=== PATIENT | female | born 1990 | race Caucasian/White ===

== ENCOUNTER 2025-04-13 14:51 | Emergency (ER) | payer OTHER ==
[~2025-04-13] VITALS: Ht 167.6 cm; Wt 64.0 kg
[2025-04-13 15:11] VITALS: BP 130/103; PULSE 64; RESP 18; O2SAT 98
[2025-04-13] MEDS ORDERED: ONDA-243 PO (16:26)
--- NOTE | 2025-04-13 16:29 | Physician Documentation ---
History of Present Illness ~ Chief Complaint: Ear Pain Stated Complaint: MED REQUEST Time Seen by MD: 15:48 HPI 34-year-old female presents to the emergency department for evaluation of right ear infection. Reports she was placed on amoxicillin five days ago and also prescribed nystatin because she has oral thrush. Has secondary complaints of some mild cervical lymphadenopathy without dysphagia. No other associated URI symptoms. Reports generalized nausea likely secondary to the medication. No reported injury or other illness, no reported fever and immunizations up-to-date. Dizziness or tinnitus. Medication Reconciliation Allergies: Coded Allergies: No Known Allergies (Unverified , 04/13/25) Scheduled PRN ONDANSETRON ODT 4mg tablet (Ondansetron Odt), 1 TAB PO Q6H PRN PRN for nausea/vomiting Review of Systems All Other Systems at this time: Reviewed and Negative Constitutional: Reports: no symptoms reported Eyes: Reports: no symptoms reported ENT: Reports: see HPI; Denies: ear discharge, hearing loss, ear ringing, throat swelling, voice change Cardiovascular: Reports: no symptoms reported Gastrointestinal: Reports: no symptoms reported Neurological: Reports: no symptoms reported Musculoskeletal: Reports: no symptoms reported Integumentary: Reports: no symptoms reported Allergic/Immunologic: Reports: no symptoms reported Hematologic/Lymphatic: Reports: no symptoms reported Endocrine: Reports: no symptoms reported Physical Exam Vital Signs: Temperature: 97.3, Heart Rate: 64, Respiratory Rate: 18, BP: 130/103, Pulse Oximetry: 98, Weight: 64.000 General Appearance: alert, WD/WN General Appearance Anxiousness Eye Lid: normal inspection Conjunctiva: normal inspection Cornea: normal inspection Pupils/EOM/Fundus: PERRLA Face: normal inspection Head: normal inspection Neck: non-tender, lymphadenopathy (R), lymphadenopathy (L) Respiratory: lungs clear Gastrointestinal: normal palpation Skin: normal color Progress Results/Orders Results/Orders Vital Signs 04/13/25 04/13/25 15:11 16:52 Temp 97.3 97.3 Pulse 64 Resp 18 B/P (MAP) 130/103 Pulse Ox 98 Medical Decision Making Additional Comment Examination history consistent with a resolving right otitis media without clinical suspicion for mastoiditis or otitis externa. No clinical suspicion for pharyngitis, peritonsillar abscess or angioedema. No clinical suspicion for Kenny's angina. Patient's thrashes also resolving. Encouraged the patient to continue with medications for 2-3 days have follow up with the primary care physician in hopes of discontinuing the medication. For the breakthrough nausea prescribed her Zofran. She is discharged in the emergency department without clinical suspicion for serious bacterial illness such as pneumonia or meningitis. Departure Disposition: HOME / SELF CARE / HOMELESS Impression: Primary Impression: Otitis media Qualified Codes: H65.21 - Chronic serous otitis media, right ear Additional Impressions: Nausea Thrush Condition: Stable Discharge Instructions: Earache, Adult, Otitis Media, Adult Additional Instructions: Your examination today is consistent with resolving right otitis media ear infection. I have prescribed you Zofran for nausea which is likely secondary to the medications. Please make follow up with the primary care physician in 2-3 days and continue with medications as directed until the him. Return to the emergency department as needed. Thank you for visiting emergency department [facility]. Referrals: NO PRIMARY CARE PROVIDER (PCP) Prescriptions ONDANSETRON ODT 4mg tablet (ONDANSETRON ODT) 4 Mg Tab.rapdis 1 TAB PO Q6H PRN PRN for nausea/vomiting for 4 Days, #16 TAB 0 Refills Prov: ARTEM ANGULO PAC 04/13/25 Education Educated: Patient Educated regarding: diagnosis, treatment Signature Scribe Signature: . Attestation: . ARTEM ANGULO PAC Apr 13, 2025 16:28
[2025-04-13 16:52] VITALS: TEMP 97.3
== END 2025-04-13 16:54 | disposition home or self-care (01) ==
LOC: ER 14:52
DX: H66.91 Otitis media, unspecified, right ear (principal); B37.0 Candidal stomatitis; R11.0 Nausea
CPT/HCPCS: 99283

== ENCOUNTER 2025-04-13 21:33 | Emergency (ER) | payer OTHER ==
[~2025-04-13] VITALS: Ht 167.6 cm; Wt 71.4 kg
[~2025-04-13 21:33] MED LIST: ONDA-243 PO
--- NOTE | 2025-04-13 23:04 | Physician Documentation ---
History of Present Illness ~ Chief Complaint: Allergic Reaction Stated Complaint: RECHECK Time Seen by MD: 22:33 HPI 34-year-old immunocompetent female seen earlier in the emergency department for resolving right otitis media taking amoxicillin. Additionally has some mild URI symptoms. Patient additionally using nystatin for a mild oral thrush. From prior history seems the symptoms began after she suspected she may have contacted Chagas disease. So she did not oral cleansing and whole-body cleansing which I believe triggered a oral thrush. Upon her prior evaluation she was noted to have shotty cervical nodes likely secondary to the otitis media and the rash. Additionally developed right otalgia for which her primary care physician began amoxicillin. She has had no rash or no shortness a breath but she has had side effects has been unpleasant. She returns to the emergency department because upon returning home her noted that she had a single high and there was approximately 6 cm x 6 cm to her left buttocks. She does recall a bite and/or prior history of the same. Mildly discomfort without pruritus. Patient took antihistamine prior to arrival. There was no respiratory involvement. Patient believes her son may have infected her the respiratory virus for now she is having some nasal congestion Medication Reconciliation Allergies: Coded Allergies: No Known Allergies (Unverified , 04/13/25) Scheduled PRN ONDANSETRON ODT 4mg tablet (Ondansetron Odt), 1 TAB PO Q6H PRN PRN for nausea/vomiting Review of Systems All Other Systems at this time: Reviewed and Negative ENT: Reports: ear pain, nose congestion Respiratory: Denies: shortness of breath Integumentary: Reports: rash Physical Exam Vital Signs: Temperature: 98.3, Heart Rate: 78, Respiratory Rate: 16, BP: 131/83, Pulse Oximetry: 99, Weight: 71.400 General Appearance: alert, WD/WN, other (She has) EENT: other (Right TM is mildly pink, oral pharynx is normal. No stridor no trismus.) Oropharynx/Lips: normal inspection, other (Very trace dressed to the posterior tongue) Neck Shotty lateral cervical nodes Cardiovascular: normal peripheral pulses, regular rate, rhythm Respiratory: lungs clear, normal breath sounds Chest: no accessory muscle use Gastrointestinal: normal palpation Extremities: normal range of motion Neurologic: oriented x4 Psychiatric: normal mood/affect, anxiety Skin: normal color, other (Single raised you had occurred lesion to left buttocks measuring 6 cm x 6 cm with no obvious puncture sites, erythema or hyperemia) Rash Location: buttocks Lymphatic: no adenopathy Progress Results/Orders Results/Orders Vital Signs 04/13/25 04/13/25 21:53 23:09 Temp 98.3 98.6 Pulse 78 76 Resp 16 18 B/P (MAP) 131/83 130/80 Pulse Ox 99 99 Medical Decision Making Differential Diagnosis See HPI. Patient advised to discontinue amoxicillin and nystatin for the examination is very mild yet I believe may be iatrogenic causing her current symptoms. She will follow up with the primary care physician. She understands to continue with her antihistamine every 6-8 hours and return to the emergency department for any respiratory involvement. Safely discharged from the emergency department without evidence of acute allergic reaction, angioedema and/or anaphylaxis. Departure Disposition: 01 HOME / SELF CARE / HOMELESS Impression: Primary Impression: Dermal hypersensitivity reaction Condition: Stable Discharge Instructions: Hives, [id number] Additional Instructions: Please discontinue your Amoxicillin, Probiotic and Nystatin. Take Antihistamine such as Zyrtec and Benadryl every 6-8 hours and follow up with the Primary Care physician. Referrals: NO PRIMARY CARE PROVIDER (PCP) Education Educated: Patient Educated regarding: diagnosis, treatment Signature Scribe Signature: . Attestation: . ARTEM ANGULO PAC Apr 13, 2025 23:04
[2025-04-13 23:09] VITALS: BP 130/80; PULSE 76; RESP 18; TEMP 98.6; O2SAT 99
== END 2025-04-13 23:10 | disposition home or self-care (01) ==
LOC: ER 21:35
DX: T78.49XA Other allergy, initial encounter (principal); X58.XXXA Exposure to other specified factors, initial encounter
CPT/HCPCS: 99282